=== PATIENT | female | born 1980 | race Caucasian/White ===

== ENCOUNTER 2017-06-30 20:25 | Emergency (ER) | payer OTHER ==
[~2017-06-30] VITALS: Ht 165.1 cm; Wt 97.5 kg
[~2017-06-30 20:25] MED LIST: FAMO40 PO
[2017-06-30] MEDS ORDERED: [UNRECOGNIZED DRUG - REMARK] (20:53)
[2017-06-30] MEDS ORDERED: Norco 5-325 Ta1 EACH PO (21:56)
[2017-06-30] MEDS ORDERED: Crutch1 EACH UD (21:56)
[2017-07-16] MEDS ORDERED: HYDR1TAB94 PO (08:43)
[2017-07-16] MEDS ORDERED: IBUP800 PO (08:46)
[2018-01-12] MEDS ORDERED: TYLENOL GO PO (14:53)
== END 2017-06-30 22:13 | disposition home or self-care (01) ==
LOC: ER 20:25
DX: S62.309A Unspecified fracture of unspecified metacarpal bone, initial encounter for closed fracture (principal); S89.91XA Unspecified injury of right lower leg, initial encounter; Z88.0 Allergy status to penicillin; Z87.891 Personal history of nicotine dependence; W19.XXXA Unspecified fall, initial encounter
CPT/HCPCS: 29505; 73564; 96372; 99283; J1885

== ENCOUNTER 2017-07-15 13:50 | Day surgery (SDC) | payer OTHER ==
[~2017-07-15 13:50] MED LIST changes: -ASPI325EC PO; -HYDR1TAB94 PO; -IBUP800 PO; -Percocet 5-3251 EACH PO; -TYLENOL GO PO
[2017-07-16] MEDS ORDERED: HYDR1TAB94 PO (08:43)
[2017-07-16] MEDS ORDERED: IBUP800 PO (08:46)
[2018-01-12] MEDS ORDERED: TYLENOL GO PO (14:53)
== END 2017-07-15 23:06 | disposition home or self-care (01) ==
LOC: RAD 13:50
PROC: BQ28YZZ Computerized Tomography (CT Scan) of Left Knee using Other Contrast (ICD-10-PCS; principal; 2017-07-15)
DX: S83.212A Bucket-handle tear of medial meniscus, current injury, left knee, initial encounter (principal)
CPT/HCPCS: 20610; 27370; 73701; 77002; A9577; Q9967

== ENCOUNTER → 2017-07-15 | Outpatient (CLI) | payer OTHER ==
[~2017-07-15] MED LIST changes: +ASPI325EC PO; +Crutch1 EACH UD; +HYDR1TAB94 PO; +IBUP800 PO; +Norco 5-325 Ta1 EACH PO; +Percocet 5-3251 EACH PO; +TYLENOL GO PO; +[UNRECOGNIZED DRUG - REMARK]
[2017-07-15 19:10] LABS: BASOPHILS ABSOLUTE AUTO 0.01 K/mm3 (0.00-0.23); BASOPHILS PERCENT AUTO 0 % (0-2); EOSINOPHILS ABSOLUTE AUTO 0.02 K/mm3 (0.00-0.68); EOSINOPHILS PERCENT AUTO 0 % (0-6); Hematocrit 43.7 % (33.0-51.0); Hemoglobin 14.7 g/dL (11.5-16.0); IMMATURE GRAN ABSOLUTE AUTO 0.01 K/mm3 (0.00-0.10); IMMATURE GRAN PERCENT AUTO 0 % (0-1); LYMPHOCYTES ABSOLUTE AUTO 2.26 K/mm3 (0.84-5.20); LYMPHOCYTES PERCENT AUTO 36 % (21-46); MONOCYTES ABSOLUTE AUTO 0.37 K/mm3 (0.16-1.47); MONOCYTES PERCENT AUTO 6 % (4-13); Mean Corpuscular HGB 29.5 pg (26.0-34.0); Mean Corpuscular HGB Conc 33.6 g/dL (31.5-36.5); Mean Corpuscular Volume 88 fL (80-100); NEUTROPHILS ABSOLUTE AUTO 3.66 K/mm3 (1.96-9.15); NEUTROPHILS PERCENT AUTO 58 % (41-73); Platelet Count 339 K/mm3 (150-400); RDW Coefficient Variation 12.9 % (11.7-14.2); RDW Standard Deviation 41.6 fL (35.1-46.3); Red Blood Cell Count 4.98 M/mm3 (3.80-5.20); White Blood Cell Count 6.33 K/mm3 (4.00-11.30)
[2017-07-15 19:26] LABS: Anion Gap 11 mmol/L (6-16); Blood Urea Nitrogen 14 mg/dL (8-24); Bun/Creatinine Ratio 20.1 (12.0-20.0); CO2, Blood 25 mmol/L (21-32); Chloride, Blood 104 mmol/L (98-108); Glomerular Filtration Rate >60 (60-); Glucose, Blood 95 mg/dL (70-99); Potassium, Blood 3.5 mmol/L (3.5-5.5); Sodium, Blood 140 mmol/L (136-145)
== END | disposition home or self-care (01) ==
LOC: OLS 16:35
PROVIDERS: Orthopaedic Surgery
DX: Z01.812 Encounter for preprocedural laboratory examination (principal); S83.212A Bucket-handle tear of medial meniscus, current injury, left knee, initial encounter
CPT/HCPCS: 36415; 80048; 81025; 85025

== ENCOUNTER 2017-07-20 11:35 | Day surgery (SDC) | payer OTHER ==
[~2017-07-20] VITALS: Ht 165.1 cm; Wt 105.7 kg
[~2017-07-20 11:35] MED LIST changes: +HYDR1TAB94 PO; +IBUP800 PO
[2018-01-12] MEDS ORDERED: TYLENOL GO PO (14:53)
== END 2017-07-20 23:01 | disposition home or self-care (01) ==
LOC: ORSCMMR 11:35
PROVIDERS: Orthopaedic Surgery
PROC: 0SQD4ZZ Repair Left Knee Joint, Percutaneous Endoscopic Approach (ICD-10-PCS; principal; 2017-07-20 13:30)
DX: S83.212A Bucket-handle tear of medial meniscus, current injury, left knee, initial encounter (principal); Z87.891 Personal history of nicotine dependence; E66.01 Morbid (severe) obesity due to excess calories; Z68.38 Body mass index [BMI] 38.0-38.9, adult
CPT/HCPCS: C1713; J0171; J1885; J2250; J2405; J3010; J7120

== ENCOUNTER 2018-01-21 08:18 | Day surgery (SDC) | payer OTHER ==
[~2018-01-21] VITALS: Ht 165.1 cm; Wt 104.3 kg
[~2018-01-21 08:18] MED LIST changes: +TYLENOL GO PO
[2018-01-22 05:54] LABS: BASOPHILS ABSOLUTE AUTO 0.03 K/mm3 (0.00-0.23); BASOPHILS PERCENT AUTO 0 % (0-2); EOSINOPHILS ABSOLUTE AUTO 0.05 K/mm3 (0.00-0.68); EOSINOPHILS PERCENT AUTO 1 % (0-6); Hematocrit 38.7 % (33.0-51.0); Hemoglobin 13.2 g/dL (11.5-16.0); IMMATURE GRAN ABSOLUTE AUTO 0.04 K/mm3 (0.00-0.10); IMMATURE GRAN PERCENT AUTO 0 % (0-1); LYMPHOCYTES ABSOLUTE AUTO 1.97 K/mm3 (0.84-5.20); LYMPHOCYTES PERCENT AUTO 21 % (21-46); MONOCYTES ABSOLUTE AUTO 0.71 K/mm3 (0.16-1.47); MONOCYTES PERCENT AUTO 8 % (4-13); Mean Corpuscular HGB 30.3 pg (26.0-34.0); Mean Corpuscular HGB Conc 34.1 g/dL (31.5-36.5); Mean Corpuscular Volume 89 fL (80-100); Mean Platelet Volume 9.7 fL (9.1-12.4); NEUTROPHILS ABSOLUTE AUTO 6.59 K/mm3 (1.96-9.15); NEUTROPHILS PERCENT AUTO 70 % (41-73); Platelet Count 281 K/mm3 (150-400); RDW Coefficient Variation 13.2 % (11.7-14.2); RDW Standard Deviation 42.9 fL (35.1-46.3); Red Blood Cell Count 4.36 M/mm3 (3.80-5.20); White Blood Cell Count 9.39 K/mm3 (4.00-11.30)
[2018-01-22 06:18] LABS: Anion Gap 5 mmol/L (6-16); Blood Urea Nitrogen 11 mg/dL (8-24); Bun/Creatinine Ratio 13.9 (12.0-20.0); CO2, Blood 29 mmol/L (21-32); Calcium, Blood 7.8 mg/dL (8.5-10.1); Chloride, Blood 104 mmol/L (98-108); Creatinine, Blood 0.79 mg/dL (0.40-1.00); Glomerular Filtration Rate >60 (60-); Glucose, Blood 105 mg/dL (70-99); Potassium, Blood 3.6 mmol/L (3.5-5.5); Sodium, Blood 138 mmol/L (136-145)
[2018-01-22] MEDS ORDERED: ASPI325EC PO (08:53)
[2018-01-22] MEDS ORDERED: Percocet 5-3251 EACH PO (08:58)
== END 2018-01-22 11:30 | disposition home or self-care (01) ==
LOC: ORSCMMR 08:18 → ORD 10:00 → ORSCMMR 10:00 → SURS 13:50 → ORD 14:00 → ORSCMMR 01-22 11:30
PROVIDERS: Orthopaedic Surgery
PROC: 0SRD0JA Replacement of Left Knee Joint with Synthetic Substitute, Uncemented, Open Approach (ICD-10-PCS; principal; 2018-01-21 10:00)
DX: M17.12 Unilateral primary osteoarthritis, left knee (principal); Z01.818 Encounter for other preprocedural examination; E66.01 Morbid (severe) obesity due to excess calories; Z68.38 Body mass index [BMI] 38.0-38.9, adult
CPT/HCPCS: 36415; 73560-LT; 80048; 85025; 86850; 86900; 86901; 88300; 97110; 97116; 97162; 97530; C1776; G8978; G8979; J0171; J0735; J1885; J2250; J2795; J3010; J7120; Q0163

== ENCOUNTER 2018-10-12 09:08 | Day surgery (SDC) | payer OTHER ==
[~2018-10-12] VITALS: Ht 165.1 cm; Wt 106.5 kg
[~2018-10-12 09:08] MED LIST changes: +ACET500 PO; +ASPI325EC PO; +Percocet 5-3251 EACH PO
--- NOTE | 2018-10-12 09:43 | NUR ---
History, Chart, Medications and Allergies reviewed before start of procedure. Patient confirms NPO status and agrees with scheduled surgery. Lungs clear T/O to Auscultation. Pre-Op teaching done. Pt verbalizes understanding. Patient States Post-Procedure ride home has been arranged. Patient reports completing Chlorhexadine shower X2 prior to admission to hospital. PATIENT WILL GIVE HER RING TO HER .
--- NOTE | 2018-10-12 10:01 | NUR ---
OR TRACKER EXPLAINED AND OPPORTUNITY FOR QUESTIONS PROVIDED.
--- NOTE | 2018-10-12 10:41 | NUR ---
WIRELESS OPERATOR REPORT COMPLETED AT BEDSIDE WITH NAHEED BAJWA RN.
--- NOTE | 2018-10-12 12:31 | NUR ---
Discharge instructions reviewed with patient. Patient verbalizes understanding. Copy given to patient to take home. DRG TO R WRIST C/D/I,ICE APPLIED PT STATES PAIN IS TOLERABLE AND DOES NOT NEED A PAIN PILL BUT IS BURNING.
--- NOTE | 2018-10-12 12:37 | NUR ---
AMBULATED TO RESTROOM PRIOR TO DC HOME. Discharged via wheelchair to private car for ride home.
== END 2018-10-12 12:39 | disposition home or self-care (01) ==
LOC: ORSCMMR 09:08 → ORD 10:30 → ORSCMMR 12:39
PROVIDERS: Orthopaedic Surgery
PROC: 0LB50ZZ Excision of Right Lower Arm and Wrist Tendon, Open Approach (ICD-10-PCS; principal; 2018-10-12 10:30)
DX: M60.241 Foreign body granuloma of soft tissue, not elsewhere classified, right hand (principal); Z18.9 Retained foreign body fragments, unspecified material; E66.01 Morbid (severe) obesity due to excess calories; Z68.39 Body mass index [BMI] 39.0-39.9, adult
CPT/HCPCS: 88305; J1100; J1885; J2250; J2370; J2405; J2704; J3010; J7120

== ENCOUNTER 2021-05-28 07:06 | Day surgery (SDC) | payer OTHER ==
[~2021-05-28] VITALS: Ht 165.1 cm; Wt 108.9 kg
--- NOTE | 2021-05-28 07:53 | NUR ---
PT ADMITTED TO [facility]. AGREES WITH PLANNED SURGERY. LUNG SOUNDS CLEAR.
--- NOTE | 2021-05-28 11:00 | NUR ---
Patient up to Ambulate independently. Gait steady. Discharge instructions reviewed with patient. Patient verbalizes understanding. Copy given to patient to take home. History, Chart, Medications and Allergies reviewed before start of procedure.Patient States Post-Procedure ride home has been arranged. Discharged via wheelchair to private car for ride home.
== END 2021-05-28 11:03 | disposition home or self-care (01) ==
LOC: ORSCMMR 07:06 → ORSCSDS 05-31 07:30 → ORSCMMR 05-31 09:00
PROVIDERS: Orthopaedic Surgery
PROC: 0QBF0ZZ Excision of Left Patella, Open Approach (ICD-10-PCS; principal; 2021-05-28 08:30)
DX: M89.9 Disorder of bone, unspecified (principal); Z96.652 Presence of left artificial knee joint; E66.9 Obesity, unspecified; Z68.41 Body mass index [BMI] 40.0-44.9, adult
CPT/HCPCS: J0690; J1100; J2250; J2405; J2704; J3010; J7120

== ENCOUNTER 2023-10-31 23:19 | Emergency (ER) | payer OTHER ==
[~2023-10-31] VITALS: Ht 165.1 cm; Wt 108.9 kg
[2023-10-31 23:53] LABS: BASOPHILS ABSOLUTE AUTO 0.04 K/mm3 (0.00-0.23); BASOPHILS PERCENT AUTO 0 % (0-2); EOSINOPHILS ABSOLUTE AUTO 0.21 K/mm3 (0.00-0.68); EOSINOPHILS PERCENT AUTO 2 % (0-6); Hematocrit 43.2 % (33.0-51.0); Hemoglobin 15.2 g/dL (11.5-16.0); IMMATURE GRAN ABSOLUTE AUTO 0.03 K/mm3 (0.00-0.10); IMMATURE GRAN PERCENT AUTO 0 % (0-1); LYMPHOCYTES ABSOLUTE AUTO 3.76 K/mm3 (0.84-5.20); LYMPHOCYTES PERCENT AUTO 36 % (21-46); MONOCYTES ABSOLUTE AUTO 0.51 K/mm3 (0.16-1.47); MONOCYTES PERCENT AUTO 5 % (4-13); Mean Corpuscular HGB 30.2 pg (26.0-34.0); Mean Corpuscular HGB Conc 35.2 g/dL (31.5-36.5); Mean Corpuscular Volume 86 fL (80-100); Mean Platelet Volume 9.6 fL (9.1-12.4); NEUTROPHILS ABSOLUTE AUTO 5.85 K/mm3 (1.96-9.15); NEUTROPHILS PERCENT AUTO 56 % (41-73); Platelet Count 311 K/mm3 (150-400); RDW Coefficient Variation 12.6 % (11.7-14.2); RDW Standard Deviation 39.4 fL (35.1-46.3); Red Blood Cell Count 5.03 M/mm3 (3.80-5.20)
[2023-11-01 00:11] LABS: Albumin, Blood 3.8 g/dL (3.4-5.0); Albumin/Globulin Ratio 0.9 (0.8-1.8); Bilirubin, Total 0.5 mg/dL (0.1-1.0); Bun/Creatinine Ratio 21.3 (12.0-20.0); Calcium, Blood 8.4 mg/dL (8.5-10.1); Creatinine, Blood 0.7 mg/dL (0.40-1.00); Globulin, Blood 4.1 g/dL (2.2-4.0); Potassium, Blood 3.3 mmol/L (3.5-5.5); Total Protein, Blood 7.9 g/dL (6.4-8.2)
[2023-11-01 02:13] VITALS: BP 175/99
== END 2023-11-01 02:34 | disposition home or self-care (01) ==
LOC: ER 23:19
PROVIDERS: Emergency Medicine
DX: R07.9 Chest pain, unspecified (principal); M79.602 Pain in left arm; Z88.0 Allergy status to penicillin
CPT/HCPCS: 71046; 80053; 84484; 85025; 93005; 93010; 99284-25